=== PATIENT | female | born 1995 | race Caucasian/White ===

== ENCOUNTER 2017-01-17 18:21 | Emergency (ER) | payer BC ==
[2017-01-17 19:43] VITALS: BP 122/70
== END 2017-01-17 19:44 | disposition home or self-care (01) ==
LOC: ED 18:21
DX: S80.211A Abrasion, right knee, initial encounter (principal); S50.811A Abrasion of right forearm, initial encounter; V89.2XXA Person injured in unspecified motor-vehicle accident, traffic, initial encounter; Y93.89 Activity, other specified; Y92.89 Other specified places as the place of occurrence of the external cause; Y99.8 Other external cause status